=== PATIENT | male | born 1995 | race African-American/Black ===

== ENCOUNTER 2018-07-25 15:36 | Emergency (ER) | payer OTHER ==
[~2018-07-25] VITALS: Ht 182.9 cm; Wt 140.6 kg
[~2018-07-25 15:36] MED LIST: ADDERALL 10 MG10 MG PO; ADDERALL 5 MG TA5 MG PO; CLARITIN10 M2 PO; FLEXERIL PO; IBUPROFEN 800800 M1 PO; IBUPROFEN 800800 MG PO; KEFLEX500 MG PO; MULTIVITAMINS PO; TRAMADOL 50 MG50 MG PO; VYVANSE70 MG PO
[2018-07-25] MEDS ORDERED: NAPROSYN500 MG PO (16:05)
[2018-07-25] MEDS ORDERED: ROBAXIN 750 MG750 M1 PO (17:36)
[2018-07-25 17:56] VITALS: BP 143/79
== END 2018-07-25 17:59 | disposition home or self-care (01) ==
LOC: M.ERS 15:36
DX: S46.811A Strain of other muscles, fascia and tendons at shoulder and upper arm level, right arm, initial encounter (principal); F90.9 Attention-deficit hyperactivity disorder, unspecified type; X58.XXXA Exposure to other specified factors, initial encounter; Y93.89 Activity, other specified; Y92.89 Other specified places as the place of occurrence of the external cause; Y99.0 Civilian activity done for income or pay